=== PATIENT | male | born 1960 | race Caucasian/White ===

== ENCOUNTER 2016-09-01 12:03 | Emergency (ER) | payer MEDICAID, OTHER ==
[~2016-09-01] VITALS: Ht 172.7 cm; Wt 66.0 kg
[~2016-09-01 12:03] MED LIST: CELE50CA PO; CYCL1TAB29 PO; HALDOL; HYDR-3583 PO; LORA-392 PO; NEUR400C PO
[2016-09-01 12:21] VITALS: BP 129/70; PULSE 85; RESP 16; TEMP 98.6; O2SAT 99
--- NOTE | 2016-09-01 14:06 | PD ---
HPI Chief Complaint: Back/ Neck Pain or Injury Time Seen by Provider: 13:55 Travel History International Travel<30 days: No Contact w/Intl Traveler<30days: No Traveled to known affect area: No History of Present Illness HPI 56-year-old male presents to the emergency room for evaluation of chronic back pain. Patient has been having back pain since 2011. Reports history of degenerative disc disease and 5 bulging disks. He recently moved here and established with a primary care physician who referred him to paint roller assembler. Patient does not remember the name of the paint roller assembler but states he has an appointment in 2 weeks. This is the third time he has been to the emergency room for chronic back pain since moving here. States he was breaking his previous prescriptions in half to make them last longer. He has also been taking Flexeril, ibuprofen without relief. He was doing well until this morning when he lifted his leg over his bike and pushed down on the pedal which exacerbated his symptoms. This movement caused He reports chronic intermittent paresthesias of bilateral lower extremities that have not changed. Denies saddle anesthesia and loss of bowel or bladder control. Denies IV drug use, weight loss, history of cancer, and fevers. History Past Medical Histgory Hx Cancer: No Social History Alcohol Use: No (Denies) Tobacco Use: Yes (2PPD per pt) Allergies-Medications (Allergen,Severity, Reaction): Coded Allergies: Elavil (Verified Allergy, Severe, Twitching, 09/01/16) PATIENT STATED SEVERE LEG KICKING Dexamethasone (Verified Allergy, Intermediate, restless, 09/01/16) Seroquel (Verified Allergy, Unknown, Twitching, 09/01/16) PATIENT STATES SEVERE LEG KICKING Toradol (Verified Adverse Reaction, Unknown, DIZZY, 09/01/16) Reported Meds & Prescriptions Reported Meds & Active Scripts Active Flexeril (Cyclobenzaprine HCl) 10 Mg Tab 10 Mg PO TID PRN Neurontin (Gabapentin) 400 Mg Cap 800 Mg PO TID Review of Systems Except as stated in HPI: all other systems reviewed are Neg Physical Exam Narrative GENERAL: Well-nourished, well-developed male in no acute distress. Afebrile. Ambulatory. Sitting up in bed. SKIN: Warm and dry. No erythema or ecchymosis. HEAD: Normocephalic. EYES: No scleral icterus. No injection or drainage. NECK: Supple, trachea midline. No JVD or lymphadenopathy. BACK: No CVA tenderness. No rash. Mild point tenderness on palpation of the lumbar spine. 2+ Achilles and patellar reflexes are equal bilaterally. Strength 5/5 and equal in lower extremities. Data Data Last Documented VS Vital Signs Date Time Temp Pulse Resp B/P Pulse Ox O2 Delivery O2 Flow Rate FiO2 09/01/16 12:21 98.6 85 16 129/70 99 MDM Medical Screen Exam Complete: Yes Emergency Medical Condition: No Differential Diagnosis Chronic low back pain versus degenerative disc disease versus sciatica versus muscle spasm Narrative Course 56-year-old male presents to the emergency room for evaluation of chronic low back pain. Patient reports history of back pain for the past 5 years. Denies any new trauma or injury. No red flag symptoms. Patient had recent x-ray at this hospital. Eforcse shows #67 oxycodone and hydrocodone and that refilled between August 02 and August 15. Patient reports allergy to dexamethasone and Toradol. This is the third time he has been seen for chronic back pain in the past one month. He is crying during exam but there are no visible tears. Concern for drug-seeking behavior. There are no urgent or emergent medical conditions this time. A medical screening exam was performed: At the time of evaluation the presenting medical condition was determined not to be of an emergent nature. The patient was given the option of receiving additional care and decided to stay. Discharged with gabapentin and lidocaine patches. Told to follow up with primary and pain management and return for worsening symptoms. He understands and agrees to plan. Primary Impression: Chronic low back pain Qualified Code: M54.42 - Chronic bilateral low back pain with bilateral sciatica Referrals: Primary Care Physician Patient Instructions: Chronic Back Pain (ED), General Instructions Additional Instructions: Rest and drink plenty of fluids. Used lidocaine patches directed, as needed. Take gabapentin as directed. Take home prescription of Flexeril as directed, as needed for pain. Take ibuprofen with food as directed, as needed for pain. Apply ice to the affected area for 20 minutes at a time, as needed for pain and swelling. Follow-up with a primary care physician. Return to the emergency room for worsening symptoms. Med/Other Pt SpecificInfo: Prescription(s) given Scripts Lidocaine Patch 12 HR 5 % Patch1 Patch TOPICAL DAILY #1 BOX Ref 0 Remove patch after 12 hours Prov:Taran Bernal MD 09/01/16 Gabapentin 600 Mg [id number] Mg PO TID 10 Days Ref 0 Prov:Taran Bernal MD 09/01/16 Disposition: 01 DISCHARGE HOME Condition: Stable Destiney Gallegos Sep 01, 2016 14:06
[2016-09-01] MEDS ORDERED: GABA600T PO (14:27)
[2016-09-01] MEDS ORDERED: LIDO1PAD52 TOPICAL (14:27)
== END 2016-09-01 14:48 | disposition home or self-care (01) ==
LOC: PHEFT 12:03
DX: M54.9 Dorsalgia, unspecified (principal); F17.210 Nicotine dependence, cigarettes, uncomplicated

== ENCOUNTER 2016-10-04 14:14 | Emergency (ER) | payer OTHER ==
[~2016-10-04] VITALS: Ht 172.7 cm; Wt 67.7 kg
[~2016-10-04 14:14] MED LIST changes: -CELE50CA PO; +GABA600T PO; -HALDOL; -HYDR-3583 PO; +LIDO1PAD52 TOPICAL; -LORA-392 PO
[2016-10-04 14:23] VITALS: BP 123/73; PULSE 78; RESP 16; TEMP 98.1; O2SAT 97
[2016-10-04] MEDS ORDERED: ALBUAER3 INH (14:36)
[2016-10-04] MEDS ORDERED: oxyCODONE/ACETAMINOPHEN 5 MG/325 MG TAB PO ONE (14:45)
[2016-10-04 15:08] LABS: AUTOMATED NEUTROPHIL # 3.5 TH/MM3 (1.8-7.7); BASOPHIL % 0.4 % (0.0-2.0); EOSINOPHIL # 0.1 TH/MM3 (0-0.4); EOSINOPHIL % 1.6 % (0.0-4.0); HEMO FLAGS DIFF FINAL; LYMPH % 24.9 % (9.0-44.0); LYMPHOCYTE # 1.4 TH/MM3 (1.0-4.8); MEAN CELL VOLUME 88.3 FL (80.0-100.0); MONO % 11.8 % (0.0-8.0); NEUT % 61.3 % (16.0-70.0); PLATELET COUNT 189 TH/MM3 (150-450); RED BLOOD COUNT 4.42 MIL/MM3 (4.50-5.90); RED CELL DISTRIBUTION WIDTH 13.3 % (11.6-17.2); WHITE BLOOD COUNT 5.7 TH/MM3 (4.0-11.0)
[2016-10-04 15:17] LABS: CHLORIDE 104 MEQ/L (98-107); POTASSIUM 3.8 MEQ/L (3.5-5.1); SODIUM (NA) 140 MEQ/L (136-145)
[2016-10-04 15:21] LABS: ANION GAP 9 MEQ/L (5-15); BICARBONATE 27.5 MEQ/L (21.0-32.0)
[2016-10-04 15:22] LABS: BLOOD UREA NITROGEN 10 MG/DL (7-18)
[2016-10-04 15:24] LABS: ALT (GPT) 96 U/L (12-78); AST (GOT) 71 U/L (15-37)
[2016-10-04 15:25] LABS: GLOMERULAR FILTRATION RATE 85 ML/MIN (>89)
[2016-10-04 15:26] LABS: TOTAL BILIRUBIN ADULT 0.7 MG/DL (0.2-1.0)
[2016-10-04 15:27] LABS: ALKALINE PHOSPHATASE 121 U/L (45-117)
[2016-10-04 15:47] LABS: BARBITURATES, URINE NEG (NEG)
[2016-10-04 15:48] LABS: AMPHETAMINE, URINE NEG (NEG); COCAINE, URINE POS (NEG)
--- NOTE | 2016-10-04 16:07 | RADHPO ---
EXAM DATE/TIME: 10/04/2016 15:35 [facility] COMPARISON: No previous studies available for comparison. INDICATIONS : Left ankle pain and abrasions after falling last night. MEDICAL HISTORY : None. SURGICAL HISTORY : None. ENCOUNTER: Initial ACUITY: 2 days PAIN SCORE: 3/10 LOCATION: Left lateral ankle. FINDINGS: Three view exam was performed of the left ankle. The bony structures are in normal alignment. No ev idence of fracture, dislocation, or soft tissue swelling. The ankle mortise is intact. No radiopaqu e foreign bodies are seen. Bony mineralization is normal. CONCLUSION: Unremarkable examination of the left ankle. Samuel Stapleton MD on October 04, 2016 at 16:01 Board Certified Radiologist. This report was verified electronically.
--- NOTE | 2016-10-04 16:08 | RADHPO ---
EXAM DATE/TIME: 10/04/2016 15:42 [facility] COMPARISON: No previous studies available for comparison. INDICATIONS : Pelvic pain after falling last night. MEDICAL HISTORY : None. SURGICAL HISTORY : None. ENCOUNTER: Initial ACUITY: 2 days PAIN SCORE: 3/10 LOCATION: Pelvis. FINDINGS: A single frontal view of the pelvis demonstrates no evidence of fracture. The bony pelvic ring is in tact. Bony mineralization is normal. The soft tissues are intact.CONCLUSION: Negative trauma [facility]. Samuel Stapleton MD on October 04, 2016 at 16:06 Board Certified Radiologist. This report was verified electronically.
--- NOTE | 2016-10-04 16:08 | RADHPO ---
EXAM DATE/TIME: 10/04/2016 15:40 [facility] COMPARISON: No previous studies available for comparison. INDICATIONS : Left knee pain and abrasions after falling last night. MEDICAL HISTORY : None. SURGICAL HISTORY : None. ENCOUNTER: Initial ACUITY: 2 days PAIN SCORE: 3/10 LOCATION: Left anterior knee. FINDINGS: Four view examination of the left knee demonstrates no evidence of fracture or dislocation. Bony min eralization is normal. The articular surfaces are intact. The suprapatellar soft tissues have a nor mal configuration. CONCLUSION: Negative trauma study. Samuel Stapleton MD on October 04, 2016 at 16:05 Board Certified Radiologist. This report was verified electronically.
[2016-10-04] MEDS ORDERED: NICOTINE 21 MG/24 HR PATCH TD ONE (16:15)
--- NOTE | 2016-10-04 16:56 | RADHPO ---
EXAM DATE/TIME: 10/04/2016 16:16 [facility] COMPARISON: No previous studies available for comparison. INDICATIONS : Neck pain. Evaluate for cervical fracture. RADIATION DOSE: 22.74 CTDIvol (mGy) MEDICAL HISTORY : Chronic obstructive pulmonary disease. SURGICAL HISTORY : Cholecystectomy. ENCOUNTER: Initial ACUITY: 1 day PAIN SCALE: 8/10 LOCATION: Bilateral neck TECHNIQUE: Volumetric scanning of the cervical spine was performed. Multiplanar reconstructions in the sagittal, coronal and oblique axial planes were performed. Using automated exposure control and adjustment o f the mA and/or kV according to patient size, radiation dose was kept as low as reasonably achievable to obtain optimal diagnostic quality images. FINDINGS: The sagittal reconstructions demonstrate normal alignment and normal prevertebral soft tissues. The d ens is intact and there is a normal atlantoaxial relationship. Degenerative disc changes present at t he C5-6 and C6-7 levels with disc space narrowing and hypertrophic change. There are degenerative la nges involving atlantoaxial joint. The axial images demonstrate that the vertebral bodies and posterior elements are intact. The soft ti ssues are within normal limits. There is no evidence of acute fracture or malalignment. Disc osteophy te complex present at C5-6 and C6-7 levels with mass effect on the anterior thecal sac. There is meta llic streak artifact from multiple metallic fragments adjacent to the right mandible. CONCLUSION: Negative trauma CT. there is no evidence of fracture. Samuel Stapleton MD on October 04, 2016 at 16:48 Board Certified Radiologist. This report was verified electronically.
--- NOTE | 2016-10-04 17:02 | RADHPO ---
EXAM DATE/TIME: 10/04/2016 16:19 [facility] COMPARISON: No previous studies available for comparison. INDICATIONS : Lower back pain radiating into right lower extremity. RADIATION DOSE: 26.18 CTDIvol (mGy) MEDICAL HISTORY : Chronic obstructive pulmonary disease. SURGICAL HISTORY : Cholecystectomy. ENCOUNTER: Initial ACUITY: 1 day PAIN SCALE: 8/10 LOCATION: Right lower back. TECHNIQUE: Volumetric scanning of the lumbar spine was performed. Multiplanar reconstructions in the sagittal, coronal and oblique axial planes were performed. Using automated exposure control and adjustment of the mA and/or kV according to patient size, radiation dose was kept as low as reasonably achievable t o obtain optimal diagnostic quality images. FINDINGS: VERTEBRAE: Normal vertebral body height. There is a mild scoliosis. DISCS: Degenerative disc changes present at the L3-4, L4-5 and L5-S1 levels with mild disc space narrowing a nd hypertrophic change. Vacuum disc phenomena present at the L4-5 and L5-S1 levels. ALIGNMENT: No evidence of subluxation. T12-L1: The thecal sac has a normal diameter. No evidence of disc bulge or protrusion. The neural foramina are patent bilaterally. L1-L2: The thecal sac has a normal diameter. No evidence of disc bulge or protrusion. The neural foramina are patent bilaterally. L2-L3: The thecal sac has a normal diameter. There is a mild annular disc bulge with no focal protrusion.. The neural foramina are patent bilaterally. L3-L4: The thecal sac has a normal diameter. There is a mild annular disc bulge with no focal protrusion.. The neural foramina are patent bilaterally. L4-L5: There is a mild to moderate annular disc bulge with mild flattening of the anterior thecal sac and no focal protrusion. There is mild narrowing of the neural foramina. There are mild degenerative change s involving the facet joints. The neural foramina are patent bilaterally. L5-S1: There is a mild to moderate disc bulge with mild flattening of the anterior thecal sac and narrowing of the neural foramina. There is no definite focal protrusion. There are degenerative changes involvi ng the facet joints. CONCLUSION: 1. Mild to moderate annular disc bulges at the L4-5 and L5-S1 levels with mild flattening of the ante rior thecal sac and no definite protrusion. 2. Mild disc bulges at the L2-3 and L3-4 levels. 3. Degenerative disc and degenerative joint changes involving the lower levels. Samuel Stapleton MD on October 04, 2016 at 16:57 Board Certified Radiologist. This report was verified electronically.
--- NOTE | 2016-10-04 17:18 | PD ---
HPI Chief Complaint: Suicide Ideation/Attempt Time Seen by Provider: 14:33 Travel History International Travel<30 days: No Contact w/Intl Traveler<30days: No Traveled to known affect area: No History of Present Illness HPI Patient 56-year-old male presents emergency department for evaluation of suicidal ideation and suicide attempt last night. Patient states that last night he was feeling very depressed and tried to hang himself. He states he fashioned a noose threw rope over a tree branch and then tried to hang himself but the rope broke. He states he fell onto his left knee and complains of left knee and left hip pain as well as low back pain. Patient denies loss consciousness head injury or difficulty breathing. Patient states this thing about hanging himself again. PFSH Past Medical History Anxiety: Yes Depression: Yes Cancer: No Cardiovascular Problems: No COPD: Yes Diminished Hearing: No Endocrine: No Genitourinary: No Immune Disorder: No Musculoskeletal: Yes (CHRONIC BACK PAIN) Neurologic: No Psychiatric: Yes (Hx of treatment for depression and PTSD) Reproductive: No Respiratory: Yes (copd ) Influenza Vaccination: Yes Past Surgical History Abdominal Surgery: Yes (GALL BLADDER ) Cardiac Surgery: No Cholecystectomy: Yes Ear Surgery: No Endocrine Surgery: No Eye Surgery: No Genitourinary Surgery: No Gynecologic Surgery: No Oral Surgery: No Thoracic Surgery: No Social History Alcohol Use: No (Denies) Tobacco Use: Yes (2PPD per pt) Substance Use: No Allergies-Medications (Allergen,Severity, Reaction): Coded Allergies: Elavil (Verified Allergy, Severe, Twitching, 10/04/16) PATIENT STATED SEVERE LEG KICKING Dexamethasone (Verified Allergy, Intermediate, restless, 10/04/16) Seroquel (Verified Allergy, Unknown, Twitching, 10/04/16) PATIENT STATES SEVERE LEG KICKING Toradol (Verified Adverse Reaction, Unknown, DIZZY, 10/04/16) Reported Meds & Prescriptions Reported Meds & Active Scripts Active Neurontin (Gabapentin) 400 Mg Cap 800 Mg PO TID Reported Proair Hfa 8.5 GM Inh (Albuterol Sulfate) 90 Mcg/Act Aer 1 Puff INH Q4H PRN 108 mcg/actuation Review of Systems Except as stated in HPI: all other systems reviewed are Neg Physical Exam Narrative GENERAL: Well-developed well-nourished no apparent distress SKIN: Warm and dry. HEAD: Atraumatic. Normocephalic. EYES: Pupils equal and round. No scleral icterus. No injection or drainage. ENT: No nasal bleeding or discharge. Mucous membranes pink and moist. Airway widely patent without any swelling. NECK: Trachea midline. No JVD. No ligature cooper no swelling. CARDIOVASCULAR: Regular rate and rhythm. No murmur appreciated. RESPIRATORY: No accessory muscle use. Clear to auscultation. Breath sounds equal bilaterally. GASTROINTESTINAL: Abdomen soft, non-tender, nondistended. Hepatic and splenic margins not palpable. MUSCULOSKELETAL: No obvious deformities. No clubbing. No cyanosis. No edema. In all extremities compartments are soft, pulses motor and sensory intact distally in all 4 extremities. LLE There is a minimal abrasion which is our is scabbed and healing to the left khanna. Minimal tenderness to the left knee which is nonlocalizing and not bony. RLE: Atraumatic Bilateral upper extremities: No tenderness at wrists elbows shoulders. Skin is intact. Axial skeleton: No midline CT or L-spine tenderness. Pelvis is stable. Hips are nontender. NEUROLOGICAL: Awake and alert. No obvious cranial nerve deficits. Motor grossly within normal limits. Normal speech. PSYCHIATRIC: Depressed mood and normal affect; endorses suicidal ideation denies homicidal ideation or AVH. Data Data Last Documented VS Vital Signs Date Time Temp Pulse Resp B/P Pulse Ox O2 Delivery O2 Flow Rate FiO2 10/04/16 16:33 18 10/04/16 14:23 98.1 78 123/[address] Cerv Spine W/O Contrast (10/04/16 ) Ct Lumb Spine W/O Contrast (10/04/16 ) Pelvis, Ap Only (Routine) (10/04/16 ) Knee, Complete (4vws) (10/04/16 ) Ankle, Complete ([id number]) (10/04/16 ) Oxycodone-Acetamin 5-325 Mg (Percocet (10/04/16 14:45) Complete Blood Count With Diff (10/04/16 14:39) Comprehensive Metabolic Panel (10/04/16 14:39) Thyroid Stimulating Hormone (10/04/16 14:39) Drug Screen, Random Urine (10/04/16 14:39) Alcohol (Ethanol) (10/04/16 14:39) Salicylates (Aspirin) (10/04/16 14:39) Tylenol (Acetaminophen) (10/04/16 14:39) Psych Screen (10/04/16 14:39) Nicotine 21 Mg Patch.24 Hr (Habitrol 21 (10/04/16 16:15) Labs Laboratory Tests Test 10/04/16 10/04/16 14:54 15:25 White Blood Count 5.7 TH/MM3 Red Blood Count 4.42 MIL/MM3 Hemoglobin 13.3 GM/DL Hematocrit 39.0 % Mean Corpuscular Volume 88.3 FL Mean Corpuscular Hemoglobin 30.0 PG Mean Corpuscular Hemoglobin 34.0 % Concent Red Cell Distribution Width 13.3 % Platelet Count 189 TH/MM3 Mean Platelet Volume 8.5 FL Neutrophils (%) (Auto) 61.3 % Lymphocytes (%) (Auto) 24.9 % Monocytes (%) (Auto) 11.8 % Eosinophils (%) (Auto) 1.6 % Basophils (%) (Auto) 0.4 % Neutrophils # (Auto) 3.5 TH/MM3 Lymphocytes # (Auto) 1.4 TH/MM3 Monocytes # (Auto) 0.7 TH/MM3 Eosinophils # (Auto) 0.1 TH/MM3 Basophils # (Auto) 0.0 TH/MM3 CBC Comment DIFF FINAL Differential Comment Sodium Level 140 MEQ/L Potassium Level 3.8 MEQ/L Chloride Level 104 MEQ/L Carbon Dioxide Level 27.5 MEQ/L Anion Gap 9 MEQ/L Blood Urea Nitrogen 10 MG/DL Creatinine 0.92 MG/DL Estimat Glomerular Filtration 85 ML/MIN Rate Random Glucose 105 MG/DL Calcium Level 8.0 MG/DL Total Bilirubin 0.7 MG/DL Aspartate Amino Transf 71 U/L (AST/SGOT) Alanine Aminotransferase 96 U/L (ALT/SGPT) Alkaline Phosphatase 121 U/L Total Protein 7.1 GM/DL Albumin 3.2 GM/DL Thyroid Stimulating Hormone 0.348 uIU/ML 3rd Gen Ethyl Alcohol Level LESS THAN 3 MG/DL Urine Opiates Screen NEG Urine Barbiturates Screen NEG Urine Amphetamines Screen NEG Urine Benzodiazepines Screen NEG Urine Cocaine Screen POS Urine Cannabinoids Screen NEG MDM Medical Decision Making Medical Screen Exam Complete: Yes Emergency Medical Condition: Yes Differential Diagnosis ankle fracture, knee fracture, back fracture all seem unlikely. Suicidal ideation. Narrative Course Patient was roomed in the emergency department, CT of the C-spine and L-spine are negative, x-rays of the pelvis, left knee, left ankle are normal. There is no indication further workup from a traumatic standpoint. Basic labs sent as part a psychiatric screening and while Tylenol and salicylate levels are still pending patient does have some mild elevations in AST and ALT which appear chronic for him. Bilirubin is normal, total protein is normal, elevations of liver enzymes can be pursued as an outpatient basis. His TSH is at the lower limit of normal but there is no significant symptoms to warrant further workup or treatment at this time. Salicylate level negative, Tylenol level negative. Patient is cocaine positive. Medically he is stable for psychiatric evaluation and disposition. He will be transferred to the [facility] at [facility]. Diagnosis Primary Impression: Left leg pain Additional Impressions: Fall Qualified Code: W19.XXXA - Fall, initial encounter Suicide attempt Condition: Stable Lino Germain MD Oct 04, 2016 17:18
[2016-10-04] MEDS ORDERED: IBUPROFEN 600 MG TAB PO ONE (17:30)
[2016-10-04] MEDS ORDERED: GABAPENTIN 300 MG CAP PO ONE (17:45)
[2016-10-04 18:09] LABS: ACETAMINOPHEN LESS THAN 2.0 MCG/ML (10.0-30.0)
[2016-10-04 22:00] VITALS: BP 129/57; PULSE 72; RESP 18; O2SAT 98
== END 2016-10-05 01:16 ==
LOC: PHED 14:14 → NEPJ 10-05 01:16
DX: S89.92XA Unspecified injury of left lower leg, initial encounter (principal); F41.8 Other specified anxiety disorders; J44.9 Chronic obstructive pulmonary disease, unspecified; F43.10 Post-traumatic stress disorder, unspecified; F17.210 Nicotine dependence, cigarettes, uncomplicated; X83.8XXA Intentional self-harm by other specified means, initial encounter; W14.XXXA Fall from tree, initial encounter
CPT/HCPCS: 72125; 72131; 72170; 73564; 73610; 80053; 80307; 80320; 80329; 84443; 85025; 99281; G0480

== ENCOUNTER 2017-03-23 12:25 | Emergency (ER) | payer MEDICAID, OTHER ==
[~2017-03-23] VITALS: Ht 172.7 cm; Wt 68.6 kg
[~2017-03-23 12:25] MED LIST changes: +ALBUAER3 INH; -CYCL1TAB29 PO; -GABA600T PO; -LIDO1PAD52 TOPICAL
[2017-03-23 12:32] VITALS: BP 118/65; PULSE 90; RESP 16; TEMP 98.3; O2SAT 96
[2017-03-23] MEDS ORDERED: LORA-474 PO (12:52)
--- NOTE | 2017-03-23 13:12 | PD ---
HPI Chief Complaint: Suicide Ideation/Attempt Time Seen by Provider: 13:02 Travel History International Travel<30 days: No Contact w/Intl Traveler<30days: No Traveled to known affect area: No History of Present Illness HPI This patient reports that he is feeling depressed and suicidal. He was considering trying to hang himself but did not actually do that. He has history of PTSD. Symptoms are moderately severe. No alleviating factors. Duration one week. He comes in voluntarily and would like to have psychiatric evaluation. Patient frequently snorts cocaine but does not have any history of IV drug abuse. Last use was yesterday PFSH Past Medical History Anxiety: Yes Depression: Yes Cancer: No Cardiovascular Problems: No COPD: Yes Diminished Hearing: No Endocrine: No Genitourinary: No Immune Disorder: No Musculoskeletal: Yes (CHRONIC BACK PAIN) Neurologic: No Psychiatric: Yes (Hx of treatment for depression and PTSD) Reproductive: No Respiratory: Yes (copd ) Tetanus Vaccination: < 5 Years Influenza Vaccination: Yes Past Surgical History Abdominal Surgery: Yes (GALL BLADDER ) Cardiac Surgery: No Cholecystectomy: Yes Ear Surgery: No Endocrine Surgery: No Eye Surgery: No Genitourinary Surgery: No Gynecologic Surgery: No Oral Surgery: No Thoracic Surgery: No Other Surgery: Yes Social History Alcohol Use: No (Denies) Tobacco Use: Yes (2PPD per pt) Substance Use: Yes (COCAINE) Allergies-Medications (Allergen,Severity, Reaction): Coded Allergies: Elavil (Verified Allergy, Severe, Twitching, 03/23/17) PATIENT STATED SEVERE LEG KICKING Dexamethasone (Verified Allergy, Intermediate, restless, 03/23/17) Seroquel (Verified Allergy, Unknown, Twitching, 03/23/17) PATIENT STATES SEVERE LEG KICKING Toradol (Verified Adverse Reaction, Unknown, DIZZY, 03/23/17) Reported Meds & Prescriptions Reported Meds & Active Scripts Active Neurontin (Gabapentin) 400 Mg Cap 800 Mg PO TID Reported Ativan (Lorazepam) 1 Mg Tab 1 Mg PO Q8H PRN Proair Hfa 8.5 GM Inh (Albuterol Sulfate) 90 Mcg/Act Aer 1 Puff INH Q4H PRN 108 mcg/actuation Review of Systems Musculoskeletal: Positive: Pain Psychiatric: Positive: Depression, Suicidal Ideations, Substance Abuse Physical Exam Narrative GENERAL: Well-nourished, well-developed patient in no apparent distress. SKIN: Focused skin assessment reveals no rash and nodules. Skin is Warm and dry. HEAD: Atraumatic. Normocephalic. EYES: Pupils equal and round. No scleral icterus. No injection or drainage. ENT: No nasal bleeding or discharge. Mucous membranes pink and moist. NECK: Trachea midline. No JVD. CARDIOVASCULAR: Regular rate and rhythm. No murmur appreciated. RESPIRATORY: No accessory muscle use. Clear to auscultation. Breath sounds equal bilaterally. GASTROINTESTINAL: Abdomen soft, non-tender, nondistended. Hepatic and splenic margins not palpable. MUSCULOSKELETAL: Has a Velcro brace on his right wrist. No clubbing. No cyanosis. No edema. NEUROLOGICAL: Awake and alert. No obvious cranial nerve deficits. Motor grossly within normal limits. Normal speech. PSYCHIATRIC: Depressed mood and flat affect; insight and judgment reduced. Data Data Last Documented VS Vital Signs Date Time Temp Pulse Resp B/P Pulse Ox O2 Delivery O2 Flow Rate FiO2 03/23/17 12:45 16 100 Room Air 03/23/17 12:32 98.3 90 118/65 Orders Complete Blood Count With Diff (03/23/17 13:07) Basic Metabolic Panel (Bmp) (03/23/17 13:07) Psych Screen (03/23/17 13:07) Drug Screen, Random Urine (03/23/17 13:07) Alcohol (Ethanol) (03/23/17 13:07) Labs Laboratory Tests Test 03/23/17 13:24 White Blood Count 8.9 TH/MM3 Red Blood Count 4.74 MIL/MM3 Hemoglobin 13.8 GM/DL Hematocrit 40.6 % Mean Corpuscular Volume 85.6 FL Mean Corpuscular Hemoglobin 29.1 PG Mean Corpuscular Hemoglobin 34.0 % Concent Red Cell Distribution Width 13.7 % Platelet Count 180 TH/MM3 Mean Platelet Volume 8.7 FL Neutrophils (%) (Auto) 62.0 % Lymphocytes (%) (Auto) 25.3 % Monocytes (%) (Auto) 11.0 % Eosinophils (%) (Auto) 0.7 % Basophils (%) (Auto) 1.0 % Neutrophils # (Auto) 5.4 TH/MM3 Lymphocytes # (Auto) 2.3 TH/MM3 Monocytes # (Auto) 1.0 TH/MM3 Eosinophils # (Auto) 0.1 TH/MM3 Basophils # (Auto) 0.1 TH/MM3 CBC Comment DIFF FINAL Differential Comment Sodium Level 139 MEQ/L Potassium Level 3.7 MEQ/L Chloride Level 103 MEQ/L Carbon Dioxide Level 28.5 MEQ/L Anion Gap 8 MEQ/L Blood Urea Nitrogen 13 MG/DL Creatinine 0.97 MG/DL Estimat Glomerular Filtration 80 ML/MIN Rate Random Glucose 96 MG/DL Calcium Level 8.9 MG/DL Urine Opiates Screen POS Urine Barbiturates Screen NEG Urine Amphetamines Screen NEG Urine Benzodiazepines Screen NEG Urine Cocaine Screen POS Urine Cannabinoids Screen POS Ethyl Alcohol Level LESS THAN 3 MG/DL MDM Medical Decision Making Medical Screen Exam Complete: Yes Emergency Medical Condition: Yes Medical Record Reviewed: Yes Differential Diagnosis Suicidal ideation, depression, adjustment disorder and substance abuse Narrative Course I have reviewed the patient's electronic medical record. CBC is normal Metabolic profile is normal Alcohol level is negative Drug screen is positive for multiple substances including cocaine I have Ordered psychiatric screening as he is presenting primarily for psychiatric evaluation and feels suicidal. He desires help and is voluntary and does not need Guzmán act. I spoke with psych screener. Our security nurse will take him to the main Diagnosis Primary Impression: Depression with suicidal ideation Additional Impressions: Chronic post-traumatic stress disorder (PTSD) Substance abuse Quinn Black MD Mar 23, 2017 13:12
[2017-03-23 13:32] LABS: AUTOMATED NEUTROPHIL # 5.4 TH/MM3 (1.8-7.7); BASOPHIL # 0.1 TH/MM3 (0-0.2); EOSINOPHIL # 0.1 TH/MM3 (0-0.4); EOSINOPHIL % 0.7 % (0.0-4.0); HEMATOCRIT 40.6 % (39.0-51.0); HEMO FLAGS DIFF FINAL; LYMPH % 25.3 % (9.0-44.0); LYMPHOCYTE # 2.3 TH/MM3 (1.0-4.8); MEAN CELL VOLUME 85.6 FL (80.0-100.0); MEAN CORPUSCULAR HEMOGLOBIN 29.1 PG (27.0-34.0); PLATELET COUNT 180 TH/MM3 (150-450); RED BLOOD COUNT 4.74 MIL/MM3 (4.50-5.90); RED CELL DISTRIBUTION WIDTH 13.7 % (11.6-17.2); WHITE BLOOD COUNT 8.9 TH/MM3 (4.0-11.0)
[2017-03-23 13:42] LABS: AMPHETAMINE, URINE NEG (NEG)
[2017-03-23 13:43] LABS: BARBITURATES, URINE NEG (NEG); CHLORIDE 103 MEQ/L (98-107); COCAINE, URINE POS (NEG); POTASSIUM 3.7 MEQ/L (3.5-5.1); SODIUM (NA) 139 MEQ/L (136-145)
[2017-03-23 13:46] LABS: ANION GAP 8 MEQ/L (5-15); BICARBONATE 28.5 MEQ/L (21.0-32.0); BLOOD UREA NITROGEN 13 MG/DL (7-18)
[2017-03-23 13:49] LABS: GLOMERULAR FILTRATION RATE 80 ML/MIN (>89)
[2017-03-23 14:32] VITALS: BP 104/76
[2017-03-23] MEDS ORDERED: NICOTINE 21 MG/24 HR PATCH T-DERMAL ONE (17:00)
[2017-03-23 17:25] VITALS: BP 96/56; PULSE 70; RESP 16; TEMP 98.7; O2SAT 95
[2017-03-23] MEDS ORDERED: ACETAMINOPHEN 325 MG TAB PO ONE (18:15)
== END 2017-03-23 19:36 | disposition home or self-care (01) ==
LOC: PHED 12:25 → NEPJ 19:36
DX: F32.9 Major depressive disorder, single episode, unspecified (principal); R45.851 Suicidal ideations; F43.12 Post-traumatic stress disorder, chronic; J44.9 Chronic obstructive pulmonary disease, unspecified; F41.9 Anxiety disorder, unspecified; F17.200 Nicotine dependence, unspecified, uncomplicated; Z79.899 Other long term (current) drug therapy
CPT/HCPCS: 80048; 80307; 85025; 99281; 99283